=== PATIENT | female | born 1995 | race Caucasian/White ===

== ENCOUNTER 2019-07-14 11:00 | Outpatient (CLI) | payer OTHER, SELFPAY ==
[2019-07-14 11:30] LABS: Basophils Percent Auto 0.3 % (0.2-1.2); Eosinophils Percent Auto 0.4 % (0-4.4); Hematocrit 39.8 % (37.0-47.0); Hemoglobin 13.2 g/dL (12.0-15.0); Immature Granulocyte Absolute 0.05 K/mm3 (0.00-0.031); Immature Granulocyte Percent A 0.5 % (0-0.5); Lymphocytes Absolute Auto 1.56 K/mm3 (0.9-3.2); Lymphocytes Percent Auto 14.1 % (18.3-44.2); Mean Corpuscular HGB Conc 33.2 g/dl (32-36); Mean Corpuscular Hemoglobin 29.5 pg (26-34); Mean Corpuscular Volume 88.8 fl (80-100); Mean Platelet Volume 10.2 fl (7.4-10.4); Monocytes Absolute Auto 0.6 K/mm3 (0.1-0.6); Monocytes Percent Auto 5.7 % (2.6-8.5); Neutrophils Absolute Auto 8.7 K/mm3 (1.3-6.7); Platelet Count Result 352 k/mm3 (150-375); Red Blood Count 4.48 M/mm3 (4.2-5.4); Red Cell Distribution Width 13.2 % (11.5-14.5)
[2019-07-15 07:21] LABS: Rapid Plasma Reagin Non-Reactive (NonReactive)
== END 2019-07-14 11:01 | disposition home or self-care (01) ==
PROVIDERS: Visit Provider Obstetrics & Gynecology
DX: Z01.818 Encounter for other preprocedural examination (principal)
CPT/HCPCS: 36415; 85025; 86592; 86850; 86900; 86901

== ENCOUNTER 2019-07-15 04:43 | Inpatient (IN) | payer OTHER, SELFPAY ==
--- NOTE | 2019-07-14 10:29 | PC.NURSE ---
VERIFIED WITH OR SCHEDULE AND PATIENT--C/S WITH TUBAL LIGATION ON 07/15/19 AT 0730 PATIENT STATES SHE IS BRING THE IDPA CONSENT FOR TUBAL LIGATION ON DAY OF SURGERY PATIENT STATES SHE IS GETTING LABS DRAWN ON 07/14/19 PATIENT INSTRUCTED NOTHING BY MOUTH AFTER MIDNIGHT TONIGHT AND TO BE IN OB TOMORROW 2 HOURS BEFORE SURGERY TIME--PATIENT VERBALIZED HER UNDERSTANDING
[2019-07-15] VITALS (64 sets, daily range): BP systolic 66–130; BP diastolic 35–101; PULSE 70–220; RESP 11–17; TEMP 36.1–37; O2SAT 97–100; BMI 37.3
--- NOTE | 2019-07-15 05:18 | LDADM ---
This patient, Rosio Quiroga, was admitted to Labor/Delivery/Recovery 120 on 07/15/19 at 04:43. Plans for labor, pain management and were discussed with patient. Patient/family oriented to hospital policies and general routines including ID bracelet, bed and alarms, visiting hours, pain management, procedures, bathroom and other care routines, personal items, smoking policy, room service/diet and guest tray routines, infant security routines, and visiting hours. Patient/Family are encouraged to report perceived risks to care and to ask questions if they do not understand what they are told or what they should do. See OBIX for further documentation.
[2019-07-15] MEDS: LACTATED RINGERS 1,000 ML 999 ML IV CONT ×2 (05:37→06:00)
--- NOTE | 2019-07-15 06:00 | WPDANESEPP ---
Anes - Eval Pre Procedure Procedure: Operation Date: 07/15/19 07:30 Proposed Procedures p Repeat Section with Bilateral Tubal Ligation - Garett Andrews MD Date/Time: 07/15/19 06:01 Surgeon: jailyn Preop Diagnosis: previous desires sterilization Pre Op Diagnosis: section Patient Data Age: 23 Gender: F Height: 1.6 m Weight: 95.5 kg Last Vital Signs Temp 36.1 C L 07/15/19 05:40 Pulse 85 07/15/19 05:03 BP 130/85 07/15/19 05:03 Allergies Allergy/AdvReac Type Severity Reaction Status Date / Time cephalexin Allergy Unknown Hives Verified 07/14/19 10:04 latex Allergy Unknown Swelling Verified 07/14/19 10:04 Home Medications Medication Instructions Recorded Confirmed Type folic acid 1 mg PO DAILY 07/14/19 07/15/19 History sertraline 50 mg PO DAILY 07/14/19 07/14/19 History bupropion HCl [Wellbutrin XL] 150 mg PO DAILY 07/15/19 07/15/19 History Patient hx anesthesia problems: none Family hx anesthesia problems: none PMF Past Medical History Medical History (Updated 07/14/19 @ 13:48 by Enoch Sol DO) Anxiety Depression DVT (deep venous thrombosis) History of MRSA infection 2016 Surgical History Surgical History (Updated 07/14/19 @ 13:48 by Enoch Sol DO) History of History of cholecystectomy Family History Family History (Updated 07/14/19 @ 10:13 by Jessica Paz RN) Grandparent Heart disease Social History Social History Years smoked: 8 Smoking status: Current every day smoker Tobacco type: e-cigarettes Second hand tobacco smoke exposure: Yes Substance use: current Spiritual care concerns: No Exam Day of Procedure 07/15/19 06:01 Patient weight: obese Heart: regular rate and rhythm Lungs: clear to auscultation Airway: Mallampati scale class 1 Neurological: alert and oriented
--- NOTE | 2019-07-15 06:35 | WPDANESEFPP ---
Anes - Eval Final PreProcedure Day of Procedure 07/15/19 06:35 Patient weight: obese Heart: regular rate and rhythm Lungs: clear to auscultation and normal air movement Airway: Mallampati scale class II Neurological: alert and oriented Last oral intake: >/= 8 hours ASA classification: II Emergent: no Anesthetic plan: proceed Anesthesia type and monitoring: regional spinal and standard monitoring Informed Consent: The patient's anesthetic plan and its attendant risks and benefits were discussed with the patient/family/POA. Questions were solicited and answers provided to the satisfaction of the patient/family/POA.
--- NOTE | 2019-07-15 06:43 | PM.IMHP ---
H&P: HPI History of Present Illness Chief complaint: section Narrative: Rosio Quiroga is a 23 year old female presents for repeat low transverse section. care has been with Dr. uam orr in [place] and due to closure of the unit care has been transferred to us for delivery today. She has had consistent care and the records and labs are on the chart. Also she desires permanent sterilization via tubal ligation. We have discussed the permanence failure rate increased risk of ectopic and regret she strongly desires to proceed. [facility] Past Medical History Medical History Anxiety Depression DVT (deep venous thrombosis) History of MRSA infection 2017 Surgical History Surgical History History of History of cholecystectomy Family History Family History Grandparent Heart disease Social History Social History Years smoked: 8 Smoking status: Current every day smoker Tobacco type: e-cigarettes Second hand tobacco smoke exposure: Yes Substance use: current Spiritual care concerns: No Meds Home Medications and Allergies Home Medications Medication Instructions Recorded Confirmed Type folic acid 1 mg PO DAILY 07/14/19 07/15/19 History sertraline 50 mg PO DAILY 07/14/19 07/14/19 History bupropion HCl [Wellbutrin XL] 150 mg PO DAILY 07/15/19 07/15/19 History Allergies Allergy/AdvReac Type Severity Reaction Status Date / Time cephalexin Allergy Unknown Hives Verified 07/14/19 10:04 latex Allergy Unknown Swelling Verified 07/14/19 10:04 Vital Signs Vital Signs - 24 hr 07/15/19 05:03 07/15/19 05:40 Temperature 36.1 C L Pulse Rate 85 Blood Pressure 130/85 Exam Const: General: cooperative and healthy appearing Resp: Effort & Inspection: normal respiratory effort Auscultation: clear to auscultation bilaterally Cardio: Rate: regular rate Rhythm: regular rhythm GI: Inspection: normal to inspection Auscultation: normal bowel sounds and other (FHT 130-140 FH 39cm) Assessment and Plan Assessment and plan (1) Term : Code(s): Z34.90 - Encounter for supervision of normal , unspecified, unspecified trimester Status: Acute (2) Previous delivery, antepartum condition or complication: Code(s): O34.219 - Maternal care for unspecified type scar from previous delivery Status: Acute Assessment and Plan: Repeat delivery (3) 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
--- NOTE | 2019-07-15 08:05 | PM.OBPRVD ---
OB - Delivery Note Procedure Procedure: Procedures 1. Repeat LTCS 2. Bilateral tubal ligation Operation Date: 07/15/19 07:30 <No data on this case meets the specified criteria> Route of delivery: (with bilateral tubal ligation) Specimen: Yes (1. tubes (2) 2. placenta) Estimated blood loss (mL): 600 Anesthesia type: Spinal Disposition: PACU Narrative: Patient was prepped and draped in usual sterile manner for this procedure. Pfannenstiel incision was made and carried down to the fascia. Fascia was extended bilaterally the length of the skin incision. Superiorly and inferiorly dissected away from the rectus muscles and the peritoneum was readily entered. Bladder flap was developed without difficulty, uterus scored, and extended the length of the lower segment. Vertex was delivered without difficulty and the rest of the baby was delivered cord was clamped and cut and the placenta was manually removed. Uterus was exteriorized and cleared of membranes and clots. Uterine incision was approximated 0 Monocryl running interlocking suture with good approximation hemostasis noted. Bilaterally the tubes were grasped with Boaz clamp doubly ligated and the loop of tissue was removed. Both tubal stumps were hemostatic. Uterus was turned to the abdomen gutters were cleared of serosanguineous fluid and clots and all subfascial tissue was noted be hemostatic. Fascia was approximated using 0 Vicryl from the left angle to the midline and running to the midline with good approximation hemostasis noted. Subcutaneous tissue was irrigated approximately 0 plain suture. Neomi were then used to approximate the skin edges. At this point seizure was considered terminated immediate postop condition of mother and baby were both excellent. Baby Weeks of gestation at delivery: 39 gender: Female Weight (pounds): 6 Weight (ounces): 11 presentation: vertex Placenta delivery description: Manual Removal cord vessel description: 3 Vessels score one minute: 8 score five minutes: 9
[2019-07-15 09:18] LABS: Amphetamine Screen Urine Negative (Negative); Barbiturate Screen Urine Negative (Negative); Benzodiazepines Screen Urine Negative (Negative); Cannabinoid Screen Urine Negative (Negative); Cocaine Screen Urine Negative (Negative); Methadone Screen Urine Negative (Negative); Opiate Screen Urine Negative (Negative); Phencyclidine Screen Urine Negative (Negative)
[2019-07-15] MEDS: KETOROLAC 30 MG/ML VIAL (*BKC) IV PUSH ×2 (11:43→20:42)
--- NOTE | 2019-07-15 11:58 | PC.NURSE ---
Patient transferred to post room #291 via stretcher. Support person present. Oriented to unit, room, information board, rooming in, admission packet and security measures. Patient verbalizes understanding.
[2019-07-15] MEDS: DEXTROSE 5%/0.45% SOD CHL 1,000 ML 125 ML IV CONT (13:13)
[2019-07-15] MEDS: MULTIVIT/MIN/PREN/FOL AC/IRON TABLET 1 TAB PO (13:13)
[2019-07-15] MEDS: SERTRALINE HCL 50 MG TABLET PO (20:41)
[2019-07-15] MEDS: buPROPion HCL XL (24 HR) 150 MG TABCR PO (20:42)
[2019-07-16 04:15] VITALS: BP 107/54; PULSE 75; RESP 16; TEMP 36.3; O2SAT 97
[2019-07-16 04:44] LABS: Basophils Percent Auto 0.3 % (0.2-1.2); Eosinophils Absolute Auto 0.1 K/mm3 (0-0.3); Eosinophils Percent Auto 0.4 % (0-4.4); Hematocrit 34.6 % (37.0-47.0); Hemoglobin 11.5 g/dL (12.0-15.0); Immature Granulocyte Absolute 0.09 K/mm3 (0.00-0.031); Immature Granulocyte Percent A 0.6 % (0-0.5); Lymphocytes Absolute Auto 2.11 K/mm3 (0.9-3.2); Lymphocytes Percent Auto 14.6 % (18.3-44.2); Mean Corpuscular HGB Conc 33.2 g/dl (32-36); Mean Corpuscular Volume 90.3 fl (80-100); Mean Platelet Volume 10.3 fl (7.4-10.4); Monocytes Percent Auto 7.1 % (2.6-8.5); Neutrophils Absolute Auto 11.1 K/mm3 (1.3-6.7); Platelet Count Result 319 k/mm3 (150-375); Red Blood Count 3.83 M/mm3 (4.2-5.4); Red Cell Distribution Width 13.3 % (11.5-14.5); White Blood Count 14.4 K/mm3 (4.5-10.0)
--- NOTE | 2019-07-16 07:10 | P.PNOB_ITS ---
OB - PN: Subj Subjective Date/time seen: 07/16/19 07:10 Pain well controlled. Diet/ambulation without difficulty. No concerns. OB - PN: Obj Data Labs CBC & Chem 7: 07/16/19 04:18 Labs: Laboratory Results - last 24 hr 07/15/19 07/16/19 08:50 04:18 WBC 14.4 H RBC 3.83 L Hgb 11.5 L Hct 34.6 L MCV 90.3 MCH 30.0 MCHC 33.2 RDW 13.3 Plt Count 319 MPV 10.3 Immature Gran % (Auto) 0.6 H Neut % (Auto) 77.0 H Lymph % (Auto) 14.6 L [place] % (Auto) 7.1 Eos % (Auto) 0.4 Baso % (Auto) 0.3 Lymph # (Auto) 2.11 [place] # (Auto) 1.0 H Eos # (Auto) 0.1 Baso # (Auto) 0.0 Abs Immat Gran (auto) 0.09 H Absolute Neuts (auto) 11.1 H Absolute Nucleated RBC 0.0 Nucleated RBC % 0.0 Urine Opiates Screen Negative Urine Methadone Screen Negative Ur Barbiturates Screen Negative Ur Phencyclidine Scrn Negative Ur Amphetamine Screen Negative U Benzodiazepines Scrn Negative Urine Cocaine Screen Negative U Cannabinoids Screen Negative OB - PN A/P Plan day: 1 Plan: routine care Comments: Further discussion yesterday re: DVT . Actually has been taking ASA for a subchorionic bleed early in , no issue with any other clotting abN. Time Spent With Patient Time: Total time spent is greater than 50% in coordination of care (as documented) at patient's floor/unit and/or counseling patient:
[2019-07-16] MEDS: MULTIVIT/MIN/PREN/FOL AC/IRON TABLET 1 TAB PO (07:12)
[2019-07-16] MEDS: IBUPROFEN 600 MG TABLET PO ×2 (07:12→15:48)
[2019-07-16] MEDS: SIMETHICONE 80 MG TAB.CHEW PO ×2 (07:14→11:07)
[2019-07-16] MEDS: DOCUSATE SODIUM 100 MG CAPSULE PO ×2 (07:15→15:47)
[2019-07-16 07:50] VITALS: BP 100/67; PULSE 80; RESP 18; TEMP 36.6; O2SAT 100
--- NOTE | 2019-07-16 09:27 | P.PNAN_ITS ---
Anes-Prog Note L&D Date/Time: 07/16/19 09:27 Epidural/Spinal procedure site: tender (Multiple attempt sites noted during assessment. No redness, swelling or drainage noted at any of sites. ) Neuro status: Neuro function grossly intact. Cardiovascular status: normal Respiratory status: normal Airway patency: baseline Mental status: baseline Post-Op hydration status: normal Vital Signs: Last Vital Signs Temp 36.3 C L 07/16/19 04:15 Pulse 75 07/16/19 04:15 Resp 16 07/16/19 04:15 BP 107/54 L 07/16/19 04:15 Pulse Ox 97 07/16/19 04:15 Pain score (VAS): 0/10. Patient resting up to bedside chair at time of a ssessment, support person at bedside. Patient noted back tenderness at spinal insertion attempt sites. No redness, swelling or drainage noted at any of sites. Encouraged patient to follow up if sites becomes reddened, swollen, drainage becomes present or back tenderness does not subside. All questions and concerned answered at time of assessment to patient's satisfaction. I/O: Intake & Output 07/15/19 07/16/19 07/16/19 23:59 07:59 15:59 Output Total 650 1700 Balance -650 -1700 Post-procedural complaints: none Patient feedback: Patient satisfied with anesthetic care.
--- NOTE | 2019-07-16 09:32 | WPDANLDNPN2 ---
Anes-Prog Note L&D-Neuraxial Date/Time: 07/16/19 09:32 Neuraxial medications: epidural PF morphine Opiod-related complaints: none Patient feedback: Patient satisfied with post-operative pain management.
[2019-07-16] MEDS: hydrOXYzine HCL 25 MG TABLET PO (17:52)
[2019-07-16 20:15] VITALS: BP 112/61; PULSE 95; RESP 16; TEMP 36.8; O2SAT 95
[2019-07-16] MEDS: SERTRALINE HCL 50 MG TABLET PO (20:22)
[2019-07-16] MEDS: buPROPion HCL XL (24 HR) 150 MG TABCR PO (20:22)
[2019-07-17 07:00] VITALS: BP 108/68; PULSE 77; RESP 16; TEMP 36.8; O2SAT 98
[2019-07-17] MEDS: MULTIVIT/MIN/PREN/FOL AC/IRON TABLET 1 TAB PO (07:12)
[2019-07-17] MEDS: DOCUSATE SODIUM 100 MG CAPSULE PO ×2 (07:13→15:58)
[2019-07-17] MEDS: IBUPROFEN 600 MG TABLET PO ×2 (07:13→13:13)
--- NOTE | 2019-07-17 07:33 | PM.OBDSVD ---
DS: Diagnosis Admitting Diagnosis Admitting Diagnosis: Encounter for supervision of normal , unspecified, unspecified trimester OB - DS: Summary OB Procedures : None OB Procedures Intrapartum: and Tubal ligation OB Procedures: : None Peripartum Data Procedures: Procedures Operation Date: 07/15/19 07:30 Actual Procedures Side Surgeon p Section Garett Andrews MD complications: none Time Spent with Patient Time attestation: Total time spent providing and/or coordinating discharge services: DS: Data Data Completed and Pending Pending studies at discharge: Pending at discharge 07/15/19 07:45 Surgical [PTH] Routine Discharge Plan Discharge Discharging Clinician: Garett Andrews Patient Disposition: Home, Self-Care Activity: as tolerated Diet: as tolerated Patient Instructions: Antibiotic Form Stand Alone Forms: General Discharge Information Follow-up/Referrals: Garett Andrews MD [Physician] - Call for Appointment (see dr landry for staple removal friday/friday of next week. ) Discharge Medications: New hydrocodone-acetaminophen 5-325 mg Tablet 1 tab PO Q3H PRN (Reason: Moderate Pain (4-6)) Qty: 30 RF: 0 ibuprofen 600 mg Tablet 600 mg PO Q6H PRN (Reason: Cramping) Qty: 30 RF: 0 Continued folic acid 1 mg Tablet 1 mg PO DAILY RF: 0 sertraline 50 mg Tablet 50 mg PO DAILY RF: 0 bupropion HCl [Wellbutrin XL] 150 mg Tablet Extended Release 24 Hr 150 mg PO DAILY RF: 0 Date of admission: 07/15/19 04:43 Primary Care Provider: PHYSICIAN,VETERINARY INSPECTOR Admitting Provider: Garett Andrews Attending physician on admission: Garett Andrews
[2019-07-17 16:02] VITALS: BP 128/66; PULSE 92; RESP 16; TEMP 37; O2SAT 97
--- NOTE | 2019-07-17 20:00 | PC.NURSE ---
I discussed with mother her taking Valtrex while she was for the herpes virus. (I explained I just talked to Dr. Andrews and he does not want the patient to continue Valtrex at this time.) Mother stated understanding and states she has never had an outbreak and states it is difficult to tell between the MRSA and the herpes. I stated understanding and instructed to the patient that if she notices any lesions in her genital area she should call her doctor immediately to get Valtrex to treat the herpes. And, for any lesions or sores elsewhere she should also call her doctor for treatment. I also discussed with mother the need for excellent handwashing as the virus can be transmitted to the baby. And, to be on the look out for symptoms in the baby such as fever, not wanting to eat, lethargy, seizures, etc. If mother sees ANY of these symptoms she should seek medical attention for the baby IMMEDIATELY. Mother states understanding.
[2019-07-17] MEDS: buPROPion HCL XL (24 HR) 150 MG TABCR PO (21:10)
[2019-07-17] MEDS: SERTRALINE HCL 50 MG TABLET PO (21:10)
--- NOTE | 2019-07-17 22:00 | PC.NURSE ---
Patient viewed the discharge video Mother & Baby Care, The First Two Weeks . Patient was given the opportunity and encouraged to ask questions. Patient verbalized understanding of information shared and has been given the mother/baby guide for home reference.
--- NOTE | 2019-07-18 01:53 | PC.NURSE ---
Daylight Savings Time For Daylight Savings Time Beginning in the Spring - Clocks are moved ahead. For [facility], the time of change occurs at 0200 hrs. Time is taken from the electrical prospecting observer. This entry on the patient's chart recognizes the change in time reflected during documentation. Example: 2 entries for vital signs may be charted for 0200 hrs.
[2019-07-18 04:51] VITALS: BP 113/71; PULSE 89; RESP 16; TEMP 36.4; O2SAT 89
[2019-07-18 07:35] VITALS: BP 111/68; PULSE 108; RESP 14; TEMP 36.8; O2SAT 98
[2019-07-18] MEDS: DOCUSATE SODIUM 100 MG CAPSULE PO (08:40)
[2019-07-18] MEDS: IBUPROFEN 600 MG TABLET PO (08:41)
[2019-07-18 10:30] VITALS: PULSE 108; RESP 14; O2SAT 98
[2019-07-19 12:48] VITALS: BP 115/77; PULSE 85; RESP 18; TEMP 36.8
--- NOTE | 2019-07-24 08:24 | PM.OBDSVD ---
DS: Diagnosis Admitting Diagnosis Admitting Diagnosis: Encounter for supervision of normal , unspecified, third trimester OB - DS: Summary OB Procedures : None OB Procedures Intrapartum: OB Procedures: : None Peripartum Data Procedures: Procedures Operation Date: 07/15/19 07:30 Actual Procedures Side Surgeon p Section Garett Andrews MD Time Spent with Patient Time attestation: Total time spent providing and/or coordinating discharge services: DS: Data Data Completed and Pending Completed studies during hospitalization: Pending at discharge 07/15/19 07:45 Surgical [PTH] Routine Discharge Plan Discharge Consulting providers: Enoch Sol Discharging Clinician: Garett Andrews Patient Disposition: Home, Self-Care Activity: as tolerated Diet: as tolerated Discharge Instructions: Education: Mom and Baby Guide Given to: Mother Follow-Up: Call your delivering provider's office for an appointment to be seen in: 1 Week Mom and baby should come to the [facility] for the follow-up appointment. Appointment Date/Time: July 19, 2019 at 12:30 pm What to expect at your follow-up visit: Blood Pressure Check Physical Assessment Removal of Stewart Call [phone] if you are unable to keep your appointment time. BREAST CARE: 1. Wear a snug supportive bra. 2. For engorgement discomfort: Breast Feeding: A. Apply warm moist washcloths B. Express milk as needed to relieve engorgement C. Wear loose clothing Bottle Feeding: A. May apply ice packs 3. For sore nipples: A. Identify correct latch-on B. Apply warm moist washcloths before and after nursing C. Air dry nipples after nursing D. May apply Lansinoh cream to nipples ABDOMINAL INCISION: (if applicable) 1. Allow incision to air dry 2. Do NOT use lotions for powders on your incision 3. When showering, allow soap and water to run over the incision, but do not wash incision EPISIOTOMY/PERINEAL CARE: 1. Until bleeding stops, use your arash bottle after urinating 2. Change your pad frequently throughout the day 3. You may take sitz baths several times a day (fill your bathtub with warm water and soak for 20 minutes.) Do NOT bathe in the water 4. No tub baths until seen by your physician - You may shower ACTIVITY: 1. Rest as much as possible. 2. Do not exercise or lift anything heavier than your baby (such as laundry or other children.) 3. Avoid stairs or driving as much as possible. 4. Do not put anything into the vagina. No douching, tampons, or sexual activity until seen by physician. NOTIFY PHYSICIAN IF YOU HAVE ANY QUESTIONS OR IF ANY OF THE FOLLOWING SYMPTOMS OCCUR: 1. If your incision becomes red, swollen, or more painful than what you have experienced in the hospital. 2. If your vaginal bleeding becomes foul smelling. 3. If your vaginal bleeding becomes more heavy than a period or if your bleeding changes from pink to bright red. However, you may pass an occasional walnut-sized clot once or twice for the first week . 4. If you experience a sharp, shooting pain in you calves. 5. If you discover a hard, reddened area on your breast or if you experience flu-like symptoms. DIET: 1. Eat regular, well-balanced meals. 2. Drink plenty of fluids daily. If , drink to thirst. Patient Instructions: Antibiotic Form Stand Alone Forms: General Discharge Information Follow-up/Referrals: Garett Andrews MD [Physician] - Call for Appointment (see dr landry for staple removal friday/friday of next week. ) Discharge Medications: New hydrocodone-acetaminophen 5-325 mg Tablet 1 tab PO Q3H PRN (Reason: Moderate Pain (4-6)) Qty: 30 RF: 0 ibuprofen 600 mg Tablet 600 mg PO Q6H PRN (Reason: Cramping) Qty: 30 RF: 0 Continued
== END 2019-07-18 15:15 | disposition home or self-care (01) | DRG 540 ==
LOC: ANHLDR 04:55 → ANHOB2 10:58
PROVIDERS: Admitting Provider Obstetrics & Gynecology; Visit Provider Obstetrics & Gynecology
PROC: (CPT 59514; principal; 2019-07-15 07:30)
DX: O34.211 Maternal care for low transverse scar from previous cesarean delivery (principal); Z30.2 Encounter for sterilization; O99.214 Obesity complicating childbirth; Z3A.39 39 weeks gestation of pregnancy; Z37.0 Single live birth; E66.9 Obesity, unspecified; O99.344 Other mental disorders complicating childbirth; F41.9 Anxiety disorder, unspecified; Z86.718 Personal history of other venous thrombosis and embolism; F17.290 Nicotine dependence, other tobacco product, uncomplicated; O99.334 Smoking (tobacco) complicating childbirth
CPT/HCPCS: 36415; 80307; 85025; 88302; 88307; A9270; J0131; J1200; J1885; J2274; J2370; J2405; J2590; J7120

== ENCOUNTER 2019-11-03 17:53 | Emergency (ER) | payer OTHER, SELFPAY ==
[2019-11-03 17:59] VITALS: BP 114/61; PULSE 85; RESP 20; TEMP 36.6; O2SAT 100
--- NOTE | 2019-11-03 18:24 | ED.BACK ---
HPI - Back Pain/Injury General Chief Complaint: Back Pain/Injury Stated Complaint: back pain from a spinal tap Time Seen by Provider: 11/03/19 17:58 Source: patient Mode of arrival: ambulatory Limitations: no limitations History of Present Illness HPI Narrative: Patient is a 23-year-old female who presents to emergency department for evaluation of mid thoracolumbar back pain which has been persistent since her epidural on July 14 noting that is gradually worsened and intensified is a moderate aching pain worse with activity and movement that does not radiate. Patient denies any fever chills nausea vomiting radicular symptoms or paresthesias or symptoms consistent with cauda equina. Patient presents in no distress. Patient has taken some ibuprofen with some improvement. Patient has not followed up for this complaint since the epidural Related Data Home Medications Medication Instructions Recorded Confirmed folic acid 1 mg PO DAILY 07/14/19 07/15/19 sertraline 50 mg PO DAILY 07/14/19 07/14/19 bupropion HCl [Wellbutrin XL] 150 mg PO DAILY 07/15/19 07/15/19 Allergies Allergy/AdvReac Type Severity Reaction Status Date / Time cephalexin Allergy Unknown Hives Verified 07/14/19 10:04 latex Allergy Unknown Swelling Verified 07/14/19 10:04 Review of Systems Review of Systems: All systems reviewed & are unremarkable except as noted in HPI and below PMFSH Past Medical History Medical History Anxiety Depression DVT (deep venous thrombosis) History of MRSA infection 2017 Surgical History Surgical History History of History of cholecystectomy Social History Social History Years smoked: 8 Smoking status: Current every day smoker Tobacco type: e-cigarettes/vaping Second hand tobacco smoke exposure: Yes Substance use: current Spiritual care concerns: No Exam Narrative: Exam Narrative: GENERAL: Well-appearing, well-nourished, and in no acute distress. HEAD: Normocephalic, atraumatic. EYES: PERRLA and EOMI. ENT: Nares clear, no rhinorrhea or epistaxis. Mucous membranes moist. CHEST: Clear to auscultation. No respiratory distress. No wheezes rales or rhonchi HEART: Regular rate and rhythm. No murmur heard. EXTREMITIES: Normal range of motion. No edema. Mid thoracolumbar back pain no deformities noted SKIN: Warm, dry, no rash. NEURO: No focal deficits. Alert and oriented x3. Motor and sensory intact and symmetrical in the extremities. Cranial nerves II through XII grossly intact. Normal speech and gait PSYCH: Normal mood and affect. Course Vital Signs Vital signs: Vital Signs Temperature 97.9 F 11/03/19 17:59 Pulse Rate 85 11/03/19 17:59 Respiratory Rate 20 11/03/19 17:59 Blood Pressure 114/61 11/03/19 17:59 Pulse Oximetry 100 11/03/19 17:59 Temperature 97.9 F 11/03/19 17:59 Pulse Rate 78 11/03/19 20:01 Respiratory Rate 20 11/03/19 20:01 Blood Pressure 120/68 11/03/19 20:01 Pulse Oximetry 99 11/03/19 20:01 MDM - Back Pain/Injury MDM Narrative Medical decision making narrative: Patients pain is positional in nature and localized to back without signs of cord compression or cauda equina based on neurological exam, skeletal exam and history. No fever or other significant factors to suggest osteomyelitis or spinal epidural abscess. No symptoms or signs to suggest pain is referred from abdominal or / cardiopulmonary sources. No pulsatile masses noted on exam. Patient ambulates with steady gait and is stable for outpatient management given case findings. Lab Data Result diagrams: 11/03/19 18:35 11/03/19 18:35 Labs: Lab Results 11/03/19 11/03/19 11/03/19 Range/Units 18:35 18:35 19:37 WBC 11.5 H (4.5-10.0) K/mm3 RBC 5.21 (4.2-5.4) M/m
[2019-11-03 18:50] LABS: Basophils Absolute Auto 0.1 K/mm3 (0.0-0.1); Basophils Percent Auto 0.5 % (0.2-1.2); Eosinophils Absolute Auto 0.1 K/mm3 (0-0.3); Eosinophils Percent Auto 0.8 % (0-4.4); Hematocrit 45.1 % (37.0-47.0); Hemoglobin 15.1 g/dL (12.0-15.0); Immature Granulocyte Absolute 0.05 K/mm3 (0.00-0.031); Immature Granulocyte Percent A 0.4 % (0-0.5); Lymphocytes Absolute Auto 2.67 K/mm3 (0.9-3.2); Lymphocytes Percent Auto 23.3 % (18.3-44.2); Mean Corpuscular HGB Conc 33.5 g/dl (32-36); Mean Corpuscular Volume 86.6 fl (80-100); Mean Platelet Volume 9.9 fl (7.4-10.4); Monocytes Absolute Auto 0.7 K/mm3 (0.1-0.6); Monocytes Percent Auto 6.3 % (2.6-8.5); Neutrophils Absolute Auto 7.9 K/mm3 (1.3-6.7); Neutrophils Percent Auto 68.7 % (45.5-73.1); Platelet Count Result 386 k/mm3 (150-375); Red Blood Count 5.21 M/mm3 (4.2-5.4); Red Cell Distribution Width 13.1 % (11.5-14.5); White Blood Count 11.5 K/mm3 (4.5-10.0)
[2019-11-03] MEDS: SODIUM CHLORIDE 0.9% IV 1,000 ML 999 ML IV CONT (18:53)
[2019-11-03 19:05] LABS: Blood Urea Nitrogen 10 mg/dL (7-17); CRP 0.8 mg/dL (<1.0); Calcium 9.4 mg/dL (8.4-10.2); Carbon Dioxide 28 mmol/L (22-30); Chloride 105 mmol/L (98-107); Estimated CRCL calculation 115 ml/min; Estimated Glomerular Filt Rate > 60; Glucose 100 mg/dL (65-105); Potassium 4.1 mmol/L (3.4-5.0); Sodium 139 mmol/L (137-145)
[2019-11-03 19:15] LABS: Erythrocyte Sedimentation Rate 4 mm/hr (0-20)
[2019-11-03 19:52] LABS: Add Urine Microscopic? YES; Appearance Urine Cloudy (Clear); Bacteria Urine 2+ /hpf; Bilirubin Urine Negative (Negative); Blood Urine Negative (Negative); Color Urine Yellow (Yellow); Glucose Urine UA Negative (Negative); Ketones Urine Negative (Negative); Leukocyte Esterase Ur Negative LEU/UL (Negative); Mucus Urine Heavy /lpf; Nitrate Urine Positive (Negative); Protein Urine 1+ mg/dL (Negative); Squamous Epithelial Cell Urine Many /hpf (Few); Urobilinogen Urine Negative mg/dL (<2.0)
[2019-11-03 20:01] VITALS: BP 120/68; PULSE 78; RESP 20; O2SAT 99
[2019-11-03 20:28] VITALS: BP 132/70; PULSE 78; RESP 18; O2SAT 100
== END 2019-11-03 20:30 | disposition home or self-care (01) ==
PROVIDERS: Emergency Medicine Emergency Medical Services; Emergency Provider Emergency Medicine
DX: M54.5 Low back pain (principal); F41.9 Anxiety disorder, unspecified; F32.9 Major depressive disorder, single episode, unspecified; Z86.718 Personal history of other venous thrombosis and embolism; Z86.14 Personal history of Methicillin resistant Staphylococcus aureus infection; F17.290 Nicotine dependence, other tobacco product, uncomplicated
CPT/HCPCS: 36415; 80048; 81001; 85025; 85652; 86140; 96361; 96374; 99284; J0131; J7030

== ENCOUNTER 2020-02-09 17:25 | Emergency (ER) | payer OTHER, SELFPAY ==
[2020-02-09 17:39] VITALS: BP 106/69; PULSE 80; RESP 18; TEMP 36.2; O2SAT 100
[2020-02-09 18:01] LABS: Add Urine Microscopic? YES; Appearance Urine Cloudy (Clear); Bilirubin Urine Negative (Negative); Blood Urine Negative (Negative); Color Urine Yellow (Yellow); Glucose Urine UA Negative (Negative); Ketones Urine Negative (Negative); Leukocyte Esterase Ur Trace LEU/UL (Negative); Mucus Urine Rare /lpf; Nitrate Urine Negative (Negative); Protein Urine Negative (Negative); RBC Urine 0-2 /hpf (0-2); Specific Grav Ur 1.027 (1.001-1.035); Squamous Epithelial Cell Urine Many /hpf (Few); Urobilinogen Urine Negative mg/dL (<2.0); WBC Urine 0-3 /hpf
[2020-02-09] MEDS: metroNIDAZOLE 250 MG TABLET 2000 MG PO (19:24)
[2020-02-09] MEDS: AZITHROMYCIN 250 MG TABLET 1000 MG PO (19:25)
--- NOTE | 2020-02-09 19:32 | ED.BACK ---
HPI - Back Pain/Injury General Chief Complaint: Back Pain/Injury <Ruy Larson PA-C - Last Filed: 02/09/20 19:39> Stated Complaint: BACK PAIN, DIZZY, NAUSEATED <MELINDA Bai Last Filed: 02/09/20 19:39> Time Seen by Provider: 02/09/20 18:02 <Ruy Larson PA-C - Last Filed: 02/09/20 19:39> Source: patient <Ruy Larson PA-C - Last Filed: 02/09/20 19:39> Mode of arrival: ambulatory <MELINDA Bai Last Filed: 02/09/20 19:39> Limitations: no limitations <Ruy Larson PA-C - Last Filed: 02/09/20 19:39> History of Present Illness HPI Narrative: Patient is a 24-year-old female who presents with several days duration of low back pain and frequency of urination and vaginal discharge patient notes aching pain across the lower back patient notes some frequency of urine patient notes that she does have a new sexual partner patient notes malodorous discharge that is new <Ruy Larson PA-C - Last Filed: 02/09/20 19:39> Related Data Allergies/Adverse Reactions: Allergies Allergy/AdvReac Type Severity Reaction Status Date / Time cephalexin Allergy Unknown Hives Verified 02/09/20 18:03 latex Allergy Unknown Swelling Verified 02/09/20 18:03 <Ruy Larson PA-C - Last Filed: 02/09/20 19:39> Review of Systems Review of Systems: All systems reviewed & are unremarkable except as noted in HPI and below <Ruy Larson PA-C - Last Filed: 02/09/20 19:39> PMFSH Social History Social History: Social History Years smoked: 8 Smoking status: Current every day smoker Tobacco type: e-cigarettes/vaping Second hand tobacco smoke exposure: Yes Substance use: current Gender identity (if verbalized by the patient): Female Spiritual care concerns: No <MELINDA Bai Last Filed: 02/09/20 19:39> Exam Narrative: Exam Narrative: GENERAL: Well-appearing, well-nourished, and in no acute distress. HEAD: Normocephalic, atraumatic. EYES: PERRLA and EOMI. ENT: Nares clear, no rhinorrhea or epistaxis. Mucous membranes moist. CHEST: Clear to auscultation. No respiratory distress. No wheezes rales or rhonchi HEART: Regular rate and rhythm. No murmur heard. Normal peripheral pulses. ABDOMEN: Soft, nontender, nondistended FEMALE GENITOURINARY: Patient with white malodorous discharge otherwise unremarkable exam EXTREMITIES: Normal range of motion. No edema. SKIN: Warm, dry, no rash. NEURO: No focal deficits. Alert and oriented x3. Neurovascularly intact PSYCH: Normal mood and affect. <MELINDA Bai Last Filed: 02/09/20 19:39> Course Course Emergency Course: Patient in the room aware of case findings treatment plan diagnosis agreeing to follow-up as directed was tested and treated for STDs agreeing to follow with gynecology and provided with reasons to return <MELINDA Bai Last Filed: 02/09/20 19:39> Vital Signs Vital signs: Vital Signs Temperature 97.2 F L 02/09/20 17:39 Pulse Rate 80 02/09/20 17:39 Respiratory Rate 18 02/09/20 17:39 Blood Pressure 106/69 02/09/20 17:39 Pulse Oximetry 100 02/09/20 17:39 Temperature 97.2 F L 02/09/20 17:39 Pulse Rate 80 02/09/20 17:39 Respiratory Rate 18 02/09/20 17:39 Blood Pressure 106/69 02/09/20 17:39 Pulse Oximetry 100 02/09/20 17:39 <MELINDA Bai Last Filed: 02/09/20 19:39> Vital Signs Temperature 97.2 F L 02/09/20 17:39 Pulse Rate 80 02/09/20 17:39 Respiratory Rate 18 02/09/20 17:39 Blood Pressure 106/69 02/09/20 17:39 Pulse Oximetry 100 02/09/20 17:39 Temperature 97.2 F L 02/09/20 17:39 Pulse Rate 80 02/09/20 17:39 Respiratory Rate 18 02/09/20 17:39 Blood Pressure 106/69 02/09/20 17:39 Pulse Oximetry 100 02/09/20 17:39 <Maira Belcher MD - Last Filed: 02/09/20 21:16> MDM - Back Pain/Injury M
== END 2020-02-09 20:11 | disposition home or self-care (01) ==
PROVIDERS: Emergency Medicine; Emergency Medicine Emergency Medical Services; Emergency Provider General Practice
DX: N34.2 Other urethritis (principal); F17.290 Nicotine dependence, other tobacco product, uncomplicated
CPT/HCPCS: 81001; 81025; 87070; 87491; 87591; 87808; 99284; A9270

== ENCOUNTER 2021-02-13 18:06 | Emergency (ER) | payer OTHER, SELFPAY ==
[2021-02-13 18:24] VITALS: BP 126/78; PULSE 80; RESP 18; TEMP 36.6; O2SAT 99
--- NOTE | 2021-02-13 18:51 | ED.GENADULT ---
HPI - General Adult General Chief complaint: Urogenital-Female Stated complaint: STD check Time Seen by Provider: 02/13/21 18:22 Source: patient Mode of arrival: ambulatory Limitations: no limitations History of Present Illness HPI narrative: Patient presents for medication for trichomoniasis after being tested positive by her SENIOR PROCUREMENT MANAGER Dr. Hoang 2 weeks ago. Patient states she did not take the medication as her boyfriend was not being treated at this time. Patient states that she never picked the medication. Patient states that her symptoms have improved. Patient denies any vaginal bleeding, fever, chills, nausea, vomiting, abdominal pain. Patient reports that her other STD tests-gonorrhea, chlamydia, HIV- came back negative. Related Data Home Medications Medication Instructions Recorded Confirmed buspirone mg 02/13/21 Allergies Allergy/AdvReac Type Severity Reaction Status Date / Time cephalexin Allergy Unknown Hives Verified 02/13/21 18:30 latex Allergy Unknown Swelling Verified 02/13/21 18:30 Review of Systems Review of Systems: CONSTITUTIONAL: Denies fever, chills, or sweats. EYES: Denies visual changes, redness, or discharge. ENT: Denies rhinorrhea, congestion, sore throat, or otalgia. CARDIOVASCULAR: Denies chest pain, palpitations, or edema. RESPIRATORY: Denies cough or dyspnea. GASTROINTESTINAL: Denies abdominal pain, nausea, vomiting, or diarrhea. GENITOURINARY: Denies dysuria or hematuria. SKIN: Denies rash or itching. MUSCULOSKELETAL: Denies back pain, joint pain, or myalgia. NEUROLOGIC: Denies headache, numbness, dizziness, or weakness. PSYCHIATRIC: Denies anxiety or depression. [facility] Past Medical History Medical History (Updated 02/13/21 @ 18:54 by Catherine Puente PA-C) Anxiety Depression DVT (deep venous thrombosis) History of MRSA infection 2017 Surgical History Surgical History History of History of cholecystectomy Family History Family History Grandparent Heart disease Social History Social History Years smoked: 8 Smoking status: Current every day smoker Tobacco type: e-cigarettes/vaping Second hand tobacco smoke exposure: Yes Substance use: current Gender identity (if verbalized by the patient): Female Spiritual care concerns: No Exam Narrative: GENERAL: Well-appearing, well-nourished, and in no acute distress. HEAD: Normocephalic, atraumatic. EYES: PERRLA and EOMI. NECK: Supple. No adenopathy or masses. CHEST: Clear to auscultation. No respiratory distress. No wheezes rales or rhonchi HEART: Regular rate and rhythm. No murmur heard. Normal peripheral pulses. EXTREMITIES: Normal range of motion. No edema. SKIN: Warm, dry, no rash. NEURO: No focal deficits. Alert and oriented x3. PSYCH: Normal mood and affect. Course Vital Signs Vital signs: Vital Signs Temperature 97.8 F 02/13/21 18:24 Pulse Rate 80 02/13/21 18:24 Respiratory Rate 18 02/13/21 18:24 Blood Pressure 126/78 02/13/21 18:24 Pulse Oximetry 99 02/13/21 18:24 Temperature 97.8 F 02/13/21 18:24 Pulse Rate 80 02/13/21 18:24 Respiratory Rate 18 02/13/21 18:24 Blood Pressure 126/78 02/13/21 18:24 Pulse Oximetry 99 02/13/21 18:24 Medical Decision Making MDM Narrative Medical decision making narrative: Patient was already prescribed medication 2 weeks ago. The prescription should still be active in the pharmacy. Patient instructed to go to the pharmacy forklift picker the medication and take it. She states that it was prescribed at 500 mg twice a day for 7 days. Patient has had complete STD testing by her SENIOR PROCUREMENT MANAGER. Patient has been told to obtain from [place] to her her partners are treated and cleared. She has a to follow-up with her SENIOR PROCUREMENT MANAGER for further evaluation and management of her symptoms.
== END 2021-02-13 19:13 | disposition home or self-care (01) ==
PROVIDERS: Emergency Provider Emergency Medicine
DX: A59.9 Trichomoniasis, unspecified (principal)
CPT/HCPCS: 99281

== ENCOUNTER 2023-02-15 18:39 | Emergency (ER) | payer SELFPAY ==
[2023-02-15 18:45] VITALS: BP 140/81; PULSE 92; RESP 16; TEMP 36.5; O2SAT 100
--- NOTE | 2023-02-15 18:53 | ED.SKABFB ---
HPI - Skin/Abscess/Foreign Bdy General Chief complaint: Skin/Abscess/Foreign Body Stated complaint: INFECTED WART ON UPPER THIGH Time Seen by Provider: 02/15/23 18:52 Source: patient Mode of arrival: ambulatory Limitations: no limitations History of Present Illness HPI narrative: patient is a 27 year female with past medical history as noted below who presents emergency department today ambulatory with a steady gait for evaluation of an infected wart to the inner aspect of her right upper thigh. She states that she has had this were to notice reoccurred many times. She states the redness/warmth and pain just started a few days ago. denies fever or chills. denies any numbness/tingling to the RLE. denies any recent bite that she knows of. she states she knows it is a wart however. Related Data Home Medications Medication Instructions Recorded Confirmed buspirone 10 mg tablet mg 02/13/21 Allergies Allergy/AdvReac Type Severity Reaction Status Date / Time cephalexin Allergy Unknown Hives Verified 02/15/23 18:53 latex Allergy Unknown Swelling Verified 02/15/23 18:53 Review of Systems Review of Systems: CONSTITUTIONAL: Denies fever, chills, or sweats. EYES: Denies visual changes, redness, or discharge. ENT: Denies rhinorrhea, congestion, sore throat, or otalgia. CARDIOVASCULAR: Denies chest pain, palpitations, or edema. RESPIRATORY: Denies cough or dyspnea. GASTROINTESTINAL: Denies abdominal pain, nausea, vomiting, or diarrhea. GENITOURINARY: Denies dysuria or hematuria. SKIN: infected wart/skin lesion to right upper thigh with redness/pain. Denies rash or itching. MUSCULOSKELETAL: Denies back pain, joint pain, or myalgia. NEUROLOGIC: Denies headache, numbness, or weakness. PSYCHIATRIC: Denies anxiety or depression. All systems reviewed & are unremarkable except as noted in HPI and below PMFSH Past Medical History Medical History Anxiety Depression DVT (deep venous thrombosis) History of MRSA infection 2017 Surgical History Surgical History History of History of cholecystectomy Family History Family History Grandparent Heart disease Social History Social History Years smoked: 8 Smoking status: Current every day smoker Tobacco type: e-cigarettes/vaping Second hand tobacco smoke exposure: Yes Substance use: current Gender identity (if verbalized by the patient): Female Spiritual care concerns: No Exam Narrative: GENERAL: Well-appearing, well-nourished, and in no acute distress. HEAD: Normocephalic, atraumatic. CHEST: respirations regular and non-labored HEART: Regular rate. Normal peripheral pulses. ABDOMEN: Soft EXTREMITIES: full ROM to RLE. Normal range of motion. SKIN: there is approx 5mm circular raised hard lesion/wart to the right upper inner thigh. surround area about 4cm circular aroudn the lesion with warmth/erythema. no proximal streaking around that. there is no fluctuance. no drainage. Warm, dry, no rash. NEURO: No focal deficits. Alert and oriented x3. distal NV intact to RLE. PSYCH: Normal mood and affect. Course Vital Signs Vital signs: Vital Signs Temperature 97.7 F 02/15/23 18:45 Pulse Rate 92 02/15/23 18:45 Respiratory Rate 16 02/15/23 18:45 Blood Pressure 140/81 02/15/23 18:45 Pulse Oximetry 100 02/15/23 18:45 Oxygen Delivery Room Air 02/15/23 18:45 Temperature 97.7 F 02/15/23 18:45 Pulse Rate 92 02/15/23 18:45 Respiratory Rate 16 02/15/23 18:45 Blood Pressure 140/81 02/15/23 18:45 Pulse Oximetry 100 02/15/23 18:45 Oxygen Delivery Room Air 02/15/23 18:45 MDM - Skin/Abscess/Foreign Bdy MDM Narrative Medical decision making narrative: patient presents for a infected skin le
== END 2023-02-15 19:40 | disposition home or self-care (01) ==
PROVIDERS: Emergency Provider Nurse Practitioner
DX: L98.8 Other specified disorders of the skin and subcutaneous tissue (principal); L08.9 Local infection of the skin and subcutaneous tissue, unspecified; F41.9 Anxiety disorder, unspecified; F32.A Depression, unspecified; Z86.718 Personal history of other venous thrombosis and embolism; Z86.14 Personal history of Methicillin resistant Staphylococcus aureus infection; Z90.49 Acquired absence of other specified parts of digestive tract; F17.290 Nicotine dependence, other tobacco product, uncomplicated
CPT/HCPCS: 99283